=== PATIENT | male | born 1955 | race Caucasian/White ===

== ENCOUNTER → 2018-03-18 10:37 | Outpatient (CLI) | payer BC, SELFPAY ==
[2018-03-18 12:20] LABS: Hematocrit 46.2 % (40-54); Hemoglobin 15.7 g/dl (13.0-16.5); Mean Corpuscular Hgb 31.8 pg (27.0-32.0); Mean Corpuscular Volume 93.5 fL (80-94); Mean Platelet Vol. 11.6 fl (6.2-12.0); Platelet Count 193 K/mm3 (150-450); RBC Distribution Width CV 13.4 % (11.6-14.6); RBC Distribution Width SD 44.9 fl (35.1-43.9); Red Blood Count 4.94 M/mm3 (4.6-6.2); White Blood Count 7.4 K/mm3 (4.4-11.0)
[2018-03-18 12:32] LABS: Scan Indicated on CBC? Y/N NO
[2018-03-18 12:33] LABS: International Normalized Ratio 1.1; Prothrombin Time (Protime)PT. 14.3 SECONDS (11.7-14.9)
[2018-03-18 12:34] LABS: Partial Thromboplast Time 33.1 Seconds (24.1-36.2)
[2018-03-18 12:38] LABS: ALB/GLOB Ratio 0.9 RATIO (0.9-2.4); AST(SGOT) 27 U/L (15-37); Alanine Aminotransfer ALT/SGPT 24 U/L (16-61); Albumin, Serum 3.5 g/dL (3.2-5.0); Alkaline Phosphatase 103 U/L (45-117); Anion Gap 9 (5-15); BUN 8 mg/dL (7-18); BUN/Creat Ratio 9.3 RATIO (10-20); Calcium,Total 8.8 mg/dL (8.5-10.1); Chloride 106 mmol/L (98-107); Creatinine, Serum 0.86 mg/dL (0.70-1.30); EST Glomerular Filtration Rate 95 mL/min (>60); Est Glom Filt Rate - Afr Amer 115 mL/min (>60); Globulin 3.9 g/dL (2.2-4.2); Glucose 93 mg/dL (74-106); Potassium 3.7 mmol/L (3.5-5.1); Protein, Total 7.4 g/dL (6.4-8.2); Sodium Level 141 mmol/L (136-145)
[2018-03-19 11:11] LABS: AFP, Tumor Marker 6.5 ng/mL (0.0-8.3)
== END ==
PROVIDERS: Family Provider Family Medicine; PCP Family Medicine; Visit Provider Internal Medicine Gastroenterology
DX: K74.60 Unspecified cirrhosis of liver (principal)
CPT/HCPCS: 36415; 80053; 82105; 85027; 85610; 85730

== ENCOUNTER 2019-05-10 14:24 | Emergency (ER) | payer BC, SELFPAY ==
[2019-05-10 14:25] VITALS: BP 114/80; PULSE 87; RESP 16; TEMP 36.9; O2SAT 96; BMI 25.7
--- NOTE | 2019-05-10 16:09 | CT_ITS ---
STUDY: CT ABDOMEN AND PELVIS WITH CONTRAST REASON FOR EXAM: Male, 63 years old. Abdominal pain, bloating RADIATION DOSAGE (If Supplied By Facility): CTDIvol = ( 19.11 ) mGy, DLP = ( 1186.98 ) mGycm TECHNIQUE: Transaxial images were obtained from the dome of the diaphragm to the symphysis pubis without oral contrast. 100 IV Isovue 300 was administered. Sagittal and coronal images were reconstructed. Individualized dose optimization techniques were used for this CT. COMPARISON: None. FINDINGS: The visualized lung bases are unremarkable. The visualized portions of the heart are within normal limits. Moderate amount of ascites. There is a diffuse contour abnormality of the liver consistent with cirrhotic changes. Innumerable lesions of decreased attenuation within the liver consistent with metastatic disease or multifocal hepatocellular carcinoma. The largest discrete lesion measures 3.5 cm in the anterior segment the right lobe. There are surgical clips in the gallbladder fossa consistent with a prior cholecystectomy. Normal spleen. 3 cm mass of decreased attenuation of the uncinate process of the pancreas worrisome for pancreatic carcinoma. Normal bilateral adrenal glands. Normal right kidney. Normal left kidney. Normal visualized stomach. Normal small intestine. There are multiple colonic diverticula consistent with diverticulosis. The appendix is visualized and appears normal. There is diffuse atherosclerotic calcification of the abdominal aorta, without a demonstrated aneurysm. Normal inferior vena cava. Several slightly enlarged lymph nodes within the upper abdomen including in the superior gastrohepatic ligament and harrison hepatis consistent with metastatic lymphadenopathy. Portal lymphadenopathy measures 1.2 x 2.0 cm. Celiac axis lymphadenopathy measures 1.2 x 2.6 cm. Normal urinary bladder. There is a right-sided inguinal hernia containing adipose tissue. Moderate compression fracture of T12 which is likely chronic without retropulsion in the spinal canal. CT/Abdomen/Pelvis W IV Cont ONLY IMPRESSION: Metastatic pancreatic carcinoma with surrounding lymphadenopathy and hepatic metastases in a cirrhotic liver with a moderate amount of ascites. Electronically Signed: Kirt Tobias MD at 18:18 EDT Tel , Service support ,
--- NOTE | 2019-05-10 16:10 | EKG12_ITS ---
Test Reason : AB PAIN Blood Pressure : / mmHG Vent. Rate : 076 BPM Atrial Rate : 076 BPM P-R Int : 150 ms QRS Dur : 088 ms QT Int : 424 ms P-R-T Axes : 051 033 046 degrees QTc Int : 477 ms Normal sinus rhythm Normal ECG Confirmed by LAURA ANDRE, TRACY ([id number]), senior technical editor DEEPAK ABEBE ([id number]) on 05/12/2019 1:39:49 PM Referred By: JONATHAN Confirmed By:TRACY SANCHEZ MD
--- NOTE | 2019-05-10 16:12 | ED.DCSUM_ITS ---
- ER Visit Summary Date of Service: 05/10/19 Chief Complaint: Dehydrated History of Present Illness: The patient is a 63 M who complains of dehydration, increasing over the past 2 weeks. He has been working more, sleeping less, and stressed. He also has a history of alcohol abuse and liver problems. He r eports some abdominal bloating. He is not currently drinking. He also has multiple hernias which he was told were nonoperative. Physical Examination: Afebrile and vital signs unremarkable. Dry mucous membranes. Heart regular. Lungs clear. Abdomen soft and nontender. Extremities nontender with no edema. Skin appears unremarkable. Test Results: EKG, chest x-ray, troponin pending. We will check CBC, CMP, lipase, urinalysis, and TSH. We will also check CT abdomen and pelvis. Emergency Department Course and Treatment: Patient treated with IV fluids while awaiting results. Work-up was concerning for pancreatic mass, uncinate process. With widespread metastasis in the liver and lymphadenopathy. Bilirubin and alkaline phosphatase elevated. Sodium 130. Patient was discussed with Dr. Mcdonnell at [facility] and was accepted for transfer. Treatment Plan: As above Disposition: Transfer to [facility] Impression: 1. Pancreatic mass This note was generated with [employer] dictation software. It may contain incorrect words, spelling, and punctuation that were not noted in review of the chart prior to signing ED Disposition - Plan for ED Patient: Referrals: Fernie Meadows MD [Primary Care Provider] -
--- NOTE | 2019-05-10 16:12 | RAD_ITS ---
STUDY: X-RAY CHEST REASON FOR EXAM: Male, 63 years old. Lack of appetite. TECHNIQUE: Single frontal view of the chest. COMPARISON: December 18, 2004 FINDINGS: There is no new focal consolidation. Normal size heart. Normal mediastinum and gabrielle. Normal visualized pulmonary arteries. Normal visualized aortic arch and descending thoracic aorta. Normal visualized thoracic spine. Normal visualized ribs, clavicles, and shoulders. There is no demonstrated abnormality of the visualized soft tissue structures of the upper abdomen. RAD/Chest 1 View (Portable) IMPRESSION: No acute cardiopulmonary process. Electronically Signed: Dara Robin MD at 16:37 EDT Tel , Service support ,
[2019-05-10] MEDS: 0.9% Normal Saline 1,000 ML 1000 ML IV (16:28)
[2019-05-10 16:31] LABS: Absolute Lymphocyte Count 0.87 X10^3/uL (0.83-4.51); Basophil# 0.03 X10^3/uL; Basophil% 0.4 % (0-1); Eosinophil# 0.12 X10^3/uL; Eosinophils% 1.5 % (0-5); Hematocrit 50.9 % (40-54); Hemoglobin 17.8 g/dL (13.0-16.5); Lymphocyte # 0.87 X10^3/ul (4.0); Lymphocyte % 10.6 % (19-41); Mean Corpuscular Hgb 31.4 pg (27.0-32.0); Mean Corpuscular Volume 89.8 fL (80-94); Mean Platelet Vol. 12.6 fl (6.2-12.0); Monocyte% 8.5 % (0-10); NRBC Flagged by Analyzer 0 % (0-5); Neutrophil # 6.46 X10^3/uL (2.7-7.7); Neutrophil % 78.8 % (47-70); POSITIVE MORPHOLOGY YES; Platelet Count 128 K/mm3 (150-450); RBC Distribution Width CV 14.4 % (11.6-14.6); RBC Distribution Width SD 47.5 fl (35.1-43.9); Red Blood Count 5.67 M/mm3 (4.6-6.2); White Blood Count 8.2 K/mm3 (4.4-11.0)
[2019-05-10 16:39] LABS: Differential Indicated SCAN CRITERIA MET
[2019-05-10 16:42] LABS: International Normalized Ratio 1.3; Partial Thromboplast Time 28.1 Seconds (24.1-36.2); Prothrombin Time (Protime)PT. 15.9 SECONDS (11.7-14.9)
[2019-05-10 17:05] LABS: Platelet Estimate SLT DEC (ADEQ)
[2019-05-10 17:06] LABS: Red Cell Morphology NORM C+C NORMAL (NORM C&C)
[2019-05-10 17:27] LABS: ALB/GLOB Ratio 0.8 RATIO (0.9-2.4); AST(SGOT) 59 U/L (15-37); Alanine Aminotransfer ALT/SGPT 53 U/L (16-61); Albumin, Serum 3.1 g/dL (3.2-5.0); Alkaline Phosphatase 229 U/L (45-117); Anion Gap 6 (5-15); BUN 12 mg/dL (7-18); BUN/Creat Ratio 14.9 RATIO (10-20); Calcium,Total 8.8 mg/dL (8.5-10.1); Chloride 97 mmol/L (98-107); Creatinine, Serum 0.81 mg/dL (0.70-1.30); EST Glomerular Filtration Rate 102 mL/min (>60); Est Glom Filt Rate - Afr Amer 124 mL/min (>60); Estimated Creatinine Clearance 98.13 ml/min; Globulin 3.7 g/dL (2.2-4.2); Glucose 103 mg/dL (74-106); Lipase 186 U/L (73-393); Potassium 3.5 mmol/L (3.5-5.1); Protein, Total 6.8 g/dL (6.4-8.2); Sodium Level 130 mmol/L (136-145)
[2019-05-10 17:57] VITALS: BP 141/83; PULSE 75; RESP 18; O2SAT 97
[2019-05-10] MEDS: HYDROmorphone 1 MG/ML Syringe IV ×2 (19:03→19:34)
[2019-05-10 19:10] LABS: Bacteria 0 SEEN /hpf (None Seen); Mucous, Urine 0 SEEN /hpf (<or=2+); Red Blood Cells-Urine 0 SEEN /hpf (0-5); Squamous Epithelial Cells - UA 0 SEEN /hpf (0-5); White Blood Cells 0 SEEN /hpf (0-5)
[2019-05-10 19:13] VITALS: RESP 18
[2019-05-10 19:17] LABS: Color, Urine Yellow (Yellow); Glucose, Dipstick Normal (Normal); Ketone-Dipstick 5 mg/dl (Negative); Leukocyte Esterase-Dipstick Negative /ul (Negative); Nitrite-Dipstick Negative (Negative); Occult Blood-Urine Negative /ul (Negative); Protein-Dipstick 15 mg/dl (Negative); Specific Gravity, Urine 1.005 (1.002-1.030); Urine Bilirubin Dipstick Negative (Negative); Urine Clarity Clear (Clear); Urine Urobilinogen 8 mg/dl (Normal)
[2019-05-10 19:22] VITALS: BP 129/88; PULSE 80; RESP 18; O2SAT 96
--- NOTE | 2019-05-10 19:40 | ED.RN ---
attempted to call rn to rn report to [facility]. rn unable to take report at this time. advised rn will return call when available.
== END 2019-05-10 21:02 | disposition short-term general hospital (02) ==
LOC: ED 16:26
PROVIDERS: Emergency Provider Emergency Medicine; Family Provider Family Medicine; PCP Family Medicine
DX: C25.9 Malignant neoplasm of pancreas, unspecified (principal); C78.7 Secondary malignant neoplasm of liver and intrahepatic bile duct; F10.21 Alcohol dependence, in remission; K70.31 Alcoholic cirrhosis of liver with ascites; K21.9 Gastro-esophageal reflux disease without esophagitis; Z72.0 Tobacco use
CPT/HCPCS: 71045; 74177; 80053; 81001; 83690; 84484; 85025; 85610; 85730; 93005; 96361; 96374; 96375; 99284; J7030; Q9967; A4216

== ENCOUNTER → 2019-05-19 14:19 | Outpatient (CLI) | payer BC, SELFPAY ==
[2019-05-18 09:13] VITALS: BMI 28.8
[2019-05-19 10:42] VITALS: BMI 28.7
--- NOTE | 2019-05-19 14:22 | US_ITS ---
STUDY: ABDOMINAL ULTRASOUND - RIGHT UPPER QUADRANT REASON FOR VISIT: Male, 63 years old. Attention biliary tree. History of mass with liver metastases as well as prior cholecystectomy. TECHNIQUE: Ultrasound evaluation of the right upper quadrant was performed with real-time and static [place]-scale imaging. TECHNICAL QUALITY: Adequate. COMPARISON: CT abdomen and pelvis with IV contrast May 10, 2019. FINDINGS: Liver: The liver measures 21.0 cm. There is a heterogeneous echogenicity of the liver. The bile ducts are within normal limits. There is hepatic color flow. The direction of portal flow is hepatopetal. 3 masses were identified, correlating with a few of the numerous probable metastatic lesions noted by CT. One of these was 1.6 x 2.4 x 2.5 cm. A second is 2.8 x 2.4 x 1.6 cm. The third is 2.8 x 2.1 x 2.2 cm. There is moderate perihepatic ascites. Gallbladder: The patient is status post cholecystectomy. Common Bile Duct (C.B.D.): The common bile duct measures 5 mm. Pancreas: There is nonvisualization of the pancreas. Right Kidney: Normal size of the right kidney. The right kidney measures 11.0 x 4.9 x 5.2 cm. Normal renal cortex. The right cortex measures 1.0 cm. There is no demonstrated renal mass or cyst. There is no right hydronephrosis. US/Abdomen Limited IMPRESSION: 1. Prior cholecystectomy. No sign of biliary obstruction. 2. Mildly heterogeneous texture and mildly enlarged liver. 3 mass lesions were seen, correlating with a few of the numerous probable metastatic lesions evident on CT. 3. Moderate perihepatic ascites. 4. The pancreas is not visualized. Electronically Signed: Finesse Carreon MD at 15:32 EDT , Service support ,
== END ==
PROVIDERS: Family Provider Family Medicine; PCP Family Medicine; Referring Provider Internal Medicine Hematology & Oncology; Visit Provider Internal Medicine Hematology & Oncology
DX: C25.9 Malignant neoplasm of pancreas, unspecified (principal); C78.7 Secondary malignant neoplasm of liver and intrahepatic bile duct; K76.9 Liver disease, unspecified; R17 Unspecified jaundice; R10.9 Unspecified abdominal pain
CPT/HCPCS: 76705